=== PATIENT | male | born 1980 | race Caucasian/White ===

== ENCOUNTER 2017-02-16 06:34 | Day surgery (SDC) | payer OTHER ==
[2017-02-16] MEDS: Lactated Ringers 1,000 ML IV SCH ×2 (06:57→10:11)
--- NOTE | 2017-02-16 07:19 | PCM.PREANE ---
Preanesthetic Assessment - Anesthesia/Transfusion/Family Hx Anesthesia History: Prior Anesthesia Without Reaction Family History of Anesthesia Reaction: No Transfusion History: No Prior Transfusion(s) Intubation History: Unknown - Review of Systems General: No Symptoms Pulmonary: No Symptoms Cardiovascular: No Symptoms Gastrointestinal: Abdominal Pain Neurological: No Symptoms Other: Reports: None - Physical Assessment O2 Sat by Pulse Oximetry: 98 Respiratory Rate: 16 Vital Signs: Last Vital Signs Temp 36.8 C 02/16/17 06:55 Pulse 97 02/16/17 06:55 Resp 16 02/16/17 06:55 BP 148/98 H 02/16/17 06:55 Pulse Ox 98 02/16/17 06:55 Height: 1.83 m Weight: 85.729 kg ASA Class: 1 Mental Status: Alert & Oriented x3 Airway Class: Mallampati = 2 Dentition: Reports: Normal Dentition Thyro-Mental Finger Breadths: 3 Mouth Opening Finger Breadths: 3 ROM/Head Extension: Full Lungs: Clear to Auscultation, Normal Respiratory Effort Cardiovascular: Regular Rate, Regular Rhythm - Allergies Allergies/Adverse Reactions: Allergies Allergy/AdvReac Type Severity Reaction Status Date / Time No Known Allergies Allergy Verified 02/11/17 08:37 - Blood Blood Available: No - Anesthesia Plan Pre-Op Medication Ordered: None - Acknowledgements Anesthesia Type Planned: General Anesthesia Pt an Appropriate Candidate for the Planned Anesthesia: Yes Alternatives and Risks of Anesthesia Discussed w Pt/Guardian: Yes Pt/Guardian Understands and Agrees with Anesthesia Plan: Yes PreAnesthesia Questionnaire HEENT History: Reports: Glaucoma Other HEENT History: wears glasses Gastrointestinal History: Reports: Other (See Below) Other Gastrointestinal History: epigastric discomfort which radiates to his back Dermatologic History: Reports: Psoriasis - Past Surgical History Head Surgeries/Procedures: Reports: None HEENT Surgical History: Reports: Oral Surgery GI Surgical History: Reports: Colonoscopy, EGD Male Surgical History: Reports: Vasectomy - SUBSTANCE USE Smoking Status *Q: Never Smoker Recreational Drug Use History: No - HOME MEDS Home Medications: Home Meds Latanoprost [Xalatan 0.005% Ophth Soln] 1 drop EYEBOTH BEDTIME 02/11/17 [History ] Ranitidine HCl [Zantac 75] 1 tab PO BID 02/11/17 [History] - CURRENT (IN HOUSE) MEDS Current Meds: Current Medications Lactated Ringer's (Ringers, Lactated) 1,000 mls @ 125 mls/hr IV ASDIRECTED [facility] Last Admin: 02/16/17 06:57 Dose: 125 mls/hr
[2017-02-16] MEDS ORDERED: Scopolamine 1.5 MG Transdermal Patch TRDERM PRN (07:20)
[2017-02-16] MEDS ORDERED: Lidocaine 2% 5 ML SDV ONE (07:24)
[2017-02-16] MEDS ORDERED: Propofol 200 MG/20 ML SDV ONE (07:24)
[2017-02-16] MEDS ORDERED: Bupivacaine 25%/EPINEPHrine/PF 30 ML ONE (07:25)
[2017-02-16] MEDS ORDERED: Ketorolac 30 MG/ML SDV ONE (07:25)
[2017-02-16] MEDS ORDERED: Octyl 2-Cyanoacrylate 1 Tube ONE (07:25)
[2017-02-16] MEDS ORDERED: fentaNYL 100 MCG/2 ML SDV ONE (07:25)
[2017-02-16] MEDS ORDERED: Rocuronium 10 MG/ML 10 ML Syringe ONE (07:25)
[2017-02-16] MEDS ORDERED: Ondansetron 4 MG/2 ML SDV ONE (07:25)
[2017-02-16] MEDS ORDERED: Neostigmine Methylsulfate 1 MG/ML 5 ML Syringe ONE (07:25)
[2017-02-16] MEDS ORDERED: Midazolam 1 MG/ML 2 ML SDV ONE (07:25)
[2017-02-16] MEDS ORDERED: HYDROmorphone 2 MG/ML Syringe ONE (07:56)
[2017-02-16] MEDS ORDERED: Acetaminophen/oxyCODONE 325-10 MG Tab PO ONE (08:07)
[2017-02-16] MEDS ORDERED: ceFAZolin 2 GM in Premix Bag 1 BAG IV ONE (08:07)
[2017-02-16] MEDS ORDERED: fentaNYL 100 MCG/2 ML SDV IVPUSH PRN (09:59)
--- NOTE | 2017-02-16 10:13 | PCM.OPNOTE ---
- General Post-Op/Procedure Note Date of Surgery/Procedure: 02/16/17 Operative Procedure(s): lap adry Findings: gb distended, wall is yellow and green cw cholecystitis, wall is not thickened [id number] Pre Op Diagnosis: biliary dyskinesia Post-Op Diagnosis: Same Anesthesia Technique: General ET Tube Primary Surgeon: Americo Simon Pathology: sent Complications: None Condition: Good
[2017-02-16] MEDS ORDERED: Labetalol 100 MG/20 ML MDV IVPUSH ONE (10:24)
--- NOTE | 2017-02-16 10:36 | OR ---
SURGEON: Americo Simon MD DATE OF PROCEDURE: 02/16/2017 PREOPERATIVE DIAGNOSIS: Biliary dyskinesia. POSTOPERATIVE DIAGNOSIS: Chronic cholecystitis. PROCEDURE PERFORMED: Laparoscopic cholecystectomy. COMPLICATIONS: None. FINDINGS: Gallbladder was distended and yellow and green consistent with chronic cholecystitis and wall is not thickened. PROCEDURE IN DETAIL: The patient was taken to the operating room and placed in the supine position. After the intubation of general endotracheal anesthesia, the patient's abdomen was prepped and draped in the usual sterile fashion. Using Optiview, a 12 mm trocar was placed supraumbilically and then followed with pneumoperitoneum. A 5 mm trocar was placed in the epigastrium and two 5 mm trocars placed in the right upper quadrant. The placement of the last three trocars was done under direct video supervision. Upon gaining entrance to the abdominal cavity, an extensive examination was then performed. The gallbladder was located and identified and retracted to the dome of the liver at the triangle of Calot. The cystic duct was clipped three more times and then using the endoscopic clip, was transected with placement of the endoscopic clip and transection was performed with care, ensuring the posterior prong of the instruments were clearly visualized prior to exercising the procedure. The gallbladder was dissected using electrocautery out of the liver bed and then removed using endoscopic bag through the umbilical site. The gallbladder was removed en bloc and there was no bile spillage and this was then followed with extensive irrigation until the bile was clear from blood and bile. The trocars were then removed under direct video supervision. The 12 mm umbilical site was then closed with deep stitches using 0 Vicryl followed with proximal stitches using 3-0 Vicryl and Dermabond. The other three trocar sites were closed with 3-0 Vicryl followed with approximation of skin with Dermabond. The patient was then awakened and extubated and transferred to the recovery room in hemodynamically stable condition. At the conclusion of the surgery, before closing the abdominal wound, instrument count and sponge count were done and were correct. The patient tolerated the procedure well and there were no intraoperative complications. Dr. Simon was present through the whole procedure. Just before surgery, a timeout was called. The patient was identified and procedure identified and procedure started. Intraoperative findings as dictated above. MICHELLE / GAURAV /[id number]
== END 2017-02-16 13:00 | disposition home or self-care (01) ==
LOC: MW.SDS 06:34
PROVIDERS: ATTEND Surgery
DX: K81.1 Chronic cholecystitis (principal); Z79.899 Other long term (current) drug therapy; H40.9 Unspecified glaucoma; Z98.52 Vasectomy status; Z98.890 Other specified postprocedural states
CPT/HCPCS: 47562; 88304; A9270; J1170; J1885; J2250; J2405; J3010; J7120; 00790; J2704